=== PATIENT | female | born 1945 | race American Indian/Alaskan Native ===

== ENCOUNTER → 2018-01-17 | Outpatient (CLI) | payer MEDICARE, OTHER | END | disposition home or self-care (01) | LOC: CDC 16:02 | DX: Z01.810 Encounter for preprocedural cardiovascular examination (principal); I70.25 Atherosclerosis of native arteries of other extremities with ulceration; R94.31 Abnormal electrocardiogram [ECG] [EKG] | CPT/HCPCS: 93000 ==